=== PATIENT | male | born 1995 | race Two or more races ===

== ENCOUNTER 2019-09-14 22:13 | Emergency (ER) | payer MEDICAID ==
[~2019-09-14] VITALS: Ht 165.1 cm; Wt 117.9 kg
[2019-09-15 04:20] VITALS: BP 149/90
== END 2019-09-15 04:21 | disposition home or self-care (01) ==
LOC: ER 22:17
DX: L60.0 Ingrowing nail (principal); L03.031 Cellulitis of right toe
CPT/HCPCS: 11730